=== PATIENT | male | born 2005 | race Hispanic/Latino ===

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

== ENCOUNTER 2023-04-24 10:22 | Emergency (ER) | payer OTHER ==
--- OUTSIDE RECORDS SUMMARY | 2023-04-24 10:44 | XMS REPORT | Continuity of Care Document ---
:2005 Author Organization [facility] t Address [address] [place] [address] Care Team Providers Name Role Phone VIKTORIYA JAMESON Primary Care Physician Unavailable MARIE OVIEDO Attending Clinician Unavailable Marie Crowder Attending Clinician Doctor Unassigned, [place] Attending Clinician Unavailable Payers Payer Name Policy Type Policy Number Effective Date Expiration Date [facility] [id number] 2019 [facility] 00:00:00 Problems This patient has no known problems. Allergies, Adverse Reactions, Alerts Allergy Allergy Status Severity Reaction(s) Onset Inactive Treating Comm ents Source Name Type Date Date Clinician NO KNOWN Drug Active Univers ALLERGIE Class ity of [facility] Social History Social Habit Start Date Stop Date Quantity Comments Source Tobacco use and 2023-04-11 2023-04-11 Smokeless tobacco Un iversity of exposure 00:00:00 00:00:00 non-user [facility] Alcohol intake 2023-04-11 2023-04-11 Current drinker of Un iversity of 00:00:00 00:00:00 alcohol (finding) [facility] Tobacco Comment 2023-04-11 2023-04-11 Vaping Universit y of 00:00:00 00:00:00 [facility] Alcohol Comment 2023-04-11 2023-04-11 occasional Universit y of 00:00:00 00:00:00 [facility] Sex Assigned At [birth year] Universit y of 00:00:00 00:00:00 [facility] Smoking Status Start Date Stop Date Source Tobacco smoking consumption [facility] Never smoked tobacco [facility] Medications Ordered Filled Start Stop Current Ordering Indication Dosage Frequency Signature Comments Components Source Medication Medication Date Date Medication? Clinician (SIG) Name Name alice Yes [id number] 5mL Take 5 mL Univers mine-pseudo 6-15 by mouth 4 it y of ephedrine-D 00:00: [place] ([place] 00 times Medical DM) 2-30-10 daily as Bran ch mg/5 mL needed for syrup Congestion /Allergies . azelastine Yes [id number] 1{spray Use 1 Univers 137 mcg 6-15 } Harmony in ity of (0.1 %) 00:00: each [place] nasal spray [address] [facility] [place] morning and 1 [place] in the evening. Use in each nostril as directed bromphenira Yes [id number] 5mL Take 5 mL Univers mine-pseudo 6-15 by mouth 4 it y of ephedrine-D 00:00: ([place] ([place]OM[place] 00 times Medical DM) 2-30-10 daily as Bran ch mg/5 mL needed for syrup Congestion /Allergies . azelastine Yes [id number] 1{spray Use 1 Univers 137 mcg 6-15 } [place] in ity of (0.1 %) 00:00: each [place] nasal spray [address] [facility] [place] morning and 1 [place] in the evening. Use in each nostril as directed Vital Signs Vital Name Observation Time Observation Value Comments Source Systolic blood 2023-04-11 18:41:00 106 mm[Hg] [facility] Diastolic blood 2023-04-11 18:41:00 72 mm[Hg] [facility] Heart rate 2023-04-11 18:41:00 96 /min [facility] Body temperature 2023-04-11 18:41:00 36.89 [facility] Body height 2023-04-11 18:41:00 189.2 cm [facility] Body weight 2023-04-11 18:41:00 129.593 kg [facility] BMI 2023-04-11 18:41:00 36.19 kg/m2 Universi ty [facility] Oxygen saturation in 2023-04-11 18:41:00 99 /min University Arterial blood by [facility] Pulse oximetry [place] Procedures Procedure Date / Time Performed Performing Clinician Leoncio e POCT MOLECULAR STREP 2023-04-11 18:51:[address] [facility] CONSENT/REFUSAL FOR 2023-04-11 18:38:26 Doctor Unassigned, No [facility] TREATMENT ASSIGNMENT OF BENEFITS 2023-04-11 18:38:14 Doctor Unassigned, No [facility] Encounters Start End Encounter Admission Attending Care Care Encounter Source Date/Time Date/Time Type Type Clinicians Facility Department ID 2023-05-08 2023-05-08 Outpatient R [facility] [id number] Univers 07:30:00 07:30:[address] [facility] 2023-04-11 2023-04-11 Outpatient R [facility] [id number] Univers 13:30:00 14:16:[address] [facility] 2023-04-11 2023-04-11 [facility] [id number] Univers 13:30:00 14:16:43 Visit Marie Wilson [facility] [id number] i ty of [place] [id number] Navneet as KANE?BLEA [id number] [address] MEDICAL OFFICE BUILDING 2023-04-11 2023-04-11 Orders Doctor PERSAUD [id number] Univers 00:00:00 00:00:00 Only Unassigned, CECILIA [id number] ity of [place] [facility] [id number] Navneet as [id number] [address] Results Test Description Test Time Test Comments Results Result Comments Source POCT MOLECULAR STREP 2023-04-11 18:59:28 Test Item Value Reference Range Interpretation Comme nts POCT Molecular Strep (test code = 08648-3) Negative Negative Lab Interpretation (test code = 11326-8) Normal [facility] [id number] 18:59:28 Test Item Value Reference Range Interpretation Comments POCT Molecular Strep (test code = Negative Negative 16081-0) Lab Interpretation (test code = Normal 70609-2) [facility]
[2023-04-24 10:59] LABS: Absolute Lymphocytes (CBC) 1.9 K/uL (0.7-4.9); MCV 88.1 fL (80-100); MPV 7.8 fL (7.6-11.3); RBC Red Blood Cell Count 4.77 M/uL (4.33-5.43)
[2023-04-24 11:17] LABS: Potassium 3.8 mEq/L (3.5-5.1)
--- NOTE | 2023-04-24 11:44 | RAD REPORT ---
EXAM DESCRIPTION: Raman Single View04/24/2023 11:14 am CLINICAL HISTORY: Chest pain COMPARISON: 2017 FINDINGS: The lungs appear clear of acute infiltrate. The heart is normal size IMPRESSION: No acute abnormalities displayed
--- NOTE | 2023-04-24 12:01 | ER ---
Nurse's Notes [facility] Name: Yung Calle Age: 18 yrs Sex: Male : 2005 Arrival Date: 04/24/2023 Time: 10:22 Bed 13 Private MD: Diagnosis: Epistaxis;Chest pain, unspecified Presentation: 04/24 10:31 Ebola Screen: No symptoms or risks identified at this time. Risk Assessment: Do you ld1 want to hurt yourself or someone else? Patient reports no desire to harm self or others. Onset of symptoms was April 24, 2023. 10:31 Method Of Arrival: Ambulatory ld1 10:31 Acuity: ENRIQUE 3 ld1 10:32 Chief complaint: Patient states: Chest pain upon walking since this morning. Hurts when ld1 sneezing. 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 Coronavirus screen: At this time, the client does not indicate any symptoms associated with coronavirus-19. Initial Sepsis Screen: Does the patient meet any 2 criteria? No. Patient's initial sepsis screen is negative. Does the patient have a suspected source of infection? No. Patient's initial sepsis screen is negative. Triage Assessment: 10:32 General: Appears in no apparent distress. comfortable, Behavior is calm, cooperative, ld1 appropriate for age. Pain: Complains of pain in chest Pain does not radiate. Pain currently is 6 out of 10 on a pain scale. at worst was 10 out of 10 on a pain scale. Quality of pain is described as throbbing, Is intermittent. EENT: No signs and/or symptoms were reported regarding the EENT system. Neuro: Level of Consciousness is awake, alert, obeys commands, Oriented to person, place, time, situation. Cardiovascular: Capillary refill < 3 seconds Patient's skin is warm and dry. Rhythm is sinus rhythm. Respiratory: Airway is patent Respiratory effort is even, unlabored. GI: Abdomen is round non-distended. : No signs and/or symptoms were reported regarding the genitourinary system. Derm: No signs and/or symptoms reported regarding the dermatologic system. Musculoskeletal: No signs and/or symptoms reported regarding the musculoskeletal system. Historical: - Allergies: 10:31 No Known Allergies; ld1 - Home Meds: 10:31 Albuterol Inhl [Active]; ld1 - PMHx: 10:31 Asthma; ld1 - PSHx: 10:31 None; ld1 - Immunization history:: Adult Immunizations up to date, Client reports receiving the 2nd dose of the Covid vaccine. - Social history:: Smoking status: Reported history of juuling and/or vaping. Screenin:52 [facility] ED Fall Risk Assessment (Adult) History of falling in the last 3 months, kc6 including since admission No falls in past 3 months (0 pts) Confusion or Disorientation No (0 pts) Intoxicated or Sedated No (0 pts) Impaired Gait No (0 pts) Mobility Assist Device Used No (0 pt) Altered Elimination No (0 pt) Score/Fall Risk Level 0 - 2 = Low Risk Oriented to surroundings, Maintained a safe environment, Educated pt \T\ family on fall prevention, incl call for assistance when getting out of bed, Assessed \T\ reinforced patient's understanding of fall precautions, Hourly rounding (assess needs \T\ fall precautionary measures) done. Abuse screen: Denies threats or abuse. Denies injuries from another. Nutritional screening: No deficits noted. Tuberculosis screening: No symptoms or risk factors identified. Assessment: 10:53 General: Appears in no apparent distress. comfortable, Behavior is calm, cooperative, kc6 appropriate for age. Pain: Complains of pain in chest Pain began 1 day ago. Neuro: Vasquez Agitation-Sedation Scale (RASS): 0 - Alert and Calm Level of Consciousness is awake, alert, obeys commands, Oriented to person, place, time, situation, Appropriate for age. Cardiovascular: Heart tones S1 S2 present Capillary refill < 3 seconds Rhythm is sinus rhythm. Respiratory: Airway is patent Trachea midline Respiratory effort is even, unlabored, Respiratory pattern is regular, symmetrical. GI: No signs and/or symptoms were reported involving the gastrointestinal system. : No signs and/or symptoms were reported regarding the genitourinary system. EENT: Nares are clear pt reports nose bleed prior to arrival. Derm: No signs and/or symptoms reported regarding the dermatologic system. Skin is intact, Skin is pink, warm \T\ dry. Musculoskeletal: No signs and/or symptoms reported regarding the musculoskeletal system. Circulation, motion, and sensation intact. Capillary refill < 3 seconds, Range of motion: intact in all extremities. 11:56 Reassessment: Patient appears in no apparent distress at this time. No changes from kc6 previously documented assessment. Patient and/or family updated on plan of care and expected duration. Pain level reassessed. Patient is alert, oriented x 3, equal unlabored respirations, skin warm/dry/pink. Vital Signs: 10:32 BP 126 / 86; Pulse 85; Resp 18; Temp 98.3(O); Pulse Ox 96% on R/A; Weight 129.27 kg; ld1 Height 6 ft. 2 in. ; Pain 6/10; 11:56 BP 96 / 60; Pulse 62; Resp 17 S; Pulse Ox 99% on R/A; kc6 10:32 Body Mass Index 36.59 (129.27 kg, 187.96 cm) ld1 10:32 Pain Scale: Adult ld1 ED Course: 10:23 Patient arrived in ED. am2 10:24 Shellie Luther [facility]-C [facility] kb 10:24 Bronson Reyes MD is Attending Physician. kb 10:31 Triage completed. ld1 10:32 Arm band placed on right wrist. ld1 10:37 Jerri Arenas, JAKUB is Primary Nurse. kc6 10:52 Patient has correct armband on for positive identification. Bed in low position. Call kc6 light in reach. Side rails up X 1. Client placed on continuous cardiac and pulse oximetry monitoring. NIBP monitoring applied. monitoring coordinator on. 10:52 Inserted saline lock: 20 gauge in right antecubital area, using aseptic technique. kc6 Blood collected. Patient maintains SpO2 saturation greater than 95% on room air. 11:16 XRAY Chest (1 view) In Process Unspecified. EDMS 12:18 No provider procedures requiring assistance completed. IV discontinued, intact, kc6 bleeding controlled, No redness/swelling at site. Pressure dressing applied. Administered Medications: No medications were administered Medication: 12:18 VIS not applicable for this client. kc6 Outcome: 12:01 Discharge ordered by . kb 12:18 Discharged to home ambulatory. kc6 12:18 Condition: improved 12:18 Discharge instructions given to patient, Instructed on discharge instructions, follow up and referral plans. Demonstrated understanding of instructions, follow-up care. 12:18 Patient left the ED. kc6 Signatures: Dispatcher [employer] EDMS Shellie Luther FNP-C FNP-Ckannalisa Maggi Jimenez am2 Nancy Ayoub, RN RN ld1 Jerri Arenas, RN RN kc6
--- NOTE | 2023-04-24 12:01 | EDPHYS ---
Physician Documentation [facility] Name: Yung Calle Age: 18 yrs Sex: Male : 2005 Arrival Date: 04/24/2023 Time: 10:22 Bed 13 Private MD: ED Physician Bronson Reyes HPI: 04/24 11:57 This 18 yrs old Male presents to ER via Ambulatory with complaints of Chest kb Pain, Nose Bleed. 11:59 The patient has not experienced similar symptoms in the past. The patient has not kb recently seen a physician. Pt reports intermittent right chest pain for a while, but this morning it has been constant since he woke up. States the pain is worse with deep breath and sneezing. Also reports nosebleed from right nare that last approx 5 minutes, now resolved. Historical: - Allergies: 10:31 No Known Allergies; ld1 - Home Meds: 10:31 Albuterol Inhl [Active]; ld1 - PMHx: 10:31 Asthma; ld1 - PSHx: 10:31 None; ld1 - Immunization history:: Adult Immunizations up to date, Client reports receiving the 2nd dose of the Covid vaccine. - Social history:: Smoking status: Reported history of juuling and/or vaping. ROS: 11:57 Constitutional: Negative for fever, chills, and weight loss. kb 11:57 ENT: Positive for nose bleed. 11:57 Cardiovascular: Positive for chest pain. 11:57 All other systems are negative. Exam: 11:57 Constitutional: This is a well developed, well nourished patient who is awake, alert, kb and in no acute distress. Head/Face: Normocephalic, atraumatic. ENT: Moist Mucous membranes Cardiovascular: Regular rate and rhythm with a normal S1 and S2. No gallops, murmurs, or rubs. No pulse deficits. Respiratory: Respirations even and unlabored. No increased work of breathing. Talking in full sentences Abdomen/GI: Soft, non-tender. No distention Skin: Warm, dry with normal turgor. Normal color. MS/ Extremity: Pulses equal, no cyanosis. Neurovascular intact. Full, normal range of motion. Neuro: Awake and alert, GCS 15, oriented to person, place, time, and situation. Moves all extremities. Normal gait. 11:57 ECG was reviewed by the Attending Physician. Vital Signs: 10:32 BP 126 / 86; Pulse 85; Resp 18; Temp 98.3(O); Pulse Ox 96% on R/A; Weight 129.27 kg; ld1 Height 6 ft. 2 in. ; Pain 6/10; 11:56 BP 96 / 60; Pulse 62; Resp 17 S; Pulse Ox 99% on R/A; kc6 10:32 Body Mass Index 36.59 (129.27 kg, 187.96 cm) ld1 10:32 Pain Scale: Adult ld1 MDM: 10:24 Patient medically screened. kb 11:59 Differential diagnosis: abnormal EKG, acute myocardial infarction, coronary artery kb disease. Data reviewed: vital signs, nurses notes. Counseling: I had a detailed discussion with the patient and/or guardian regarding: the historical points, exam findings, and any diagnostic results supporting the discharge/admit diagnosis, lab results, radiology results, the need for outpatient follow up, a family practitioner, to return to the emergency department if symptoms worsen or persist or if there are any questions or concerns that arise at home. 04/24 10:32 Order name: Basic Metabolic Panel; Complete Time: 11:23 kb 04/24 10:32 Order name: CBC with Diff; Complete Time: 11:11 kb 04/24 10:32 Order name: Troponin HS; Complete Time: 11:23 kb 04/24 10:32 Order name: XRAY Chest (1 view); Complete Time: 11:45 kb 04/24 10:32 Order name: EKG; Complete Time: 10:33 kb 04/24 10:32 Order name: EKG - Nurse/Tech; Complete Time: 10:52 kb 04/24 10:32 Order name: IV Saline Lock; Complete Time: 10:52 kb 04/24 10:32 Order name: Labs collected and sent; Complete Time: 10:52 kb EC:57 Rate is 82 beats/min. Rhythm is regular. QRS [place] is Normal. VT interval is normal at kb 148 msec. QRS interval is normal at 90 msec. QT interval is normal at 429 msec. Administered Medications: No medications were administered Disposition: 13:43 Co-signature as Attending Physician, Bronson Reyes MD I reviewed the patient's care rt provided by the Advanced Practice Provider and agree with the diagnosis and treatment plan. Disposition Summary: 04/24/23 12:01 Discharge Ordered Location: Home kb Condition: Stable kb Diagnosis - Epistaxis kb - Chest pain, unspecified kb Followup: kb - With: Emergency Department - When: As needed - Reason: Worsening of condition Followup: kb - With: Private Physician - When: 2 - 3 days - Reason: Recheck today's complaints, Continuance of care, Re-evaluation by your physician Discharge Instructions: - Discharge Summary Sheet kb - Nonspecific Chest Pain, Adult, [id number] kb - Nosebleed, Adult, [id number] kb Forms: - Medication Reconciliation Form kb - Thank You Letter kb - Antibiotic Education kb - Prescription Opioid Use kb - [email or web address] kb Signatures: Dispatcher [employer] Shellie Cobb FNP-C FNP-Ckb Sims, Lauren, RN RN ld1 Bronson Reyes MD MD rt
[2023-04-24 12:29] VITALS: TEMP 98.3
[2023-04-24 12:30] VITALS: BP 96/60; O2SAT 99
--- NOTE | 2023-04-25 12:37 | EKG ---
Test Date: 2023-04-24 Test Time: 10:45:22 Rod Tape Operator: BETY MEASUREMENT RESULTS: Intervals: Rate: 82 MD: 148 QRSD: 90 QT: 368 QTc: 429 [place]: P: 47 MD: 148 QRS: 68 T: 36 INTERPRETIVE STATEMENTS: Normal sinus rhythm with sinus arrhythmia Normal ECG Compared to ECG 04/21/2021 06:20:08 No significant changes Electronically Signed On 04-25-23 12:35:03 CDT by David Josue
== END 2023-04-24 12:18 | disposition home or self-care (01) ==
LOC: ER 10:22
DX: R04.0 Epistaxis (principal); R07.9 Chest pain, unspecified
CPT/HCPCS: 36415; 71045; 80048; 84484; 85025; 93005; 99285

== ENCOUNTER 2023-08-28 08:57 | Emergency (ER) | payer OTHER, SELFPAY ==
--- OUTSIDE RECORDS SUMMARY | 2023-08-28 09:01 | XMS REPORT | Continuity of Care Document ---
:2005 Author Organization [facility] t Address [address] [place] [address] Care Team Providers Name Role Phone VIKTORIYA JAMESON Primary Care Physician Unavailable Marie Crowder Attending Clinician Lab, Ang - Db Attending Clinician Unavailable MARIE OVIEDO Attending Clinician Unavailable Doctor Unassigned, [place] Attending Clinician Unavailable Payers Payer Name Policy Type Policy Number Effective Date Expiration Date S ource Problems Condition Condition Condition Status Onset Resolution Last Treating Co mments Source Name Details Category Date Date Treatment Clinician Date Vitamin D Vitamin D Disease Active Uni vers deficiency deficiency 7-15 it y of disease disease 00:00: [address] Elevated Elevated Disease Active Unive rs TSH TSH 7-15 ity of 00:: [address] Allergies, Adverse Reactions, Alerts Allergy Allergy Status Severity Reaction(s) Onset Inactive Treating Comm ents Source Name Type Date Date Clinician NO KNOWN Drug Active Univers ALLERGIE Class ity of [facility] Social History Social Habit Start Date Stop Date Quantity Comments Source Gender identity Universit y of [facility] Sexual orientation Univer sity of [facility] Alcohol intake 2023-05-11 2023-05-11 Current drinker Unive rsity of 00:00:00 00:00:00 of alcohol [facility] [place] Tobacco use and 2023-04-11 2023-04-11 Smokeless tobacco Un iversity of exposure 00:00:00 00:00:00 non-user [facility] Tobacco Comment 2023-04-11 2023-04-11 Vaping Universit y of 00:00:00 00:00:00 [facility] Alcohol Comment 2023-04-11 2023-04-11 occasional Universit y of 00:00:00 00:00:00 [facility] History of Social 2023-04-11 2023-04-11 Univers ity of function 00:00:00 00:00:00 [facility] Sex Assigned At [birth year] Universit y of 00:00:00 00:00:00 [facility] Smoking Status Start Date Stop Date Source Tobacco [facility] Never [facility] tobacco [facility] Medications Ordered Filled Start Stop Current Ordering Indication Dosage Frequency Signature Comments Components Source Medication Medication Date Date Medication? Clinician (SIG) Name Name ergocalcife Yes [id number] Take 1 Univers rol, 7-15 capsule by ity of vitamin d2, 00:00: mouth [place] (VITAMIN 00 weekly. Medical D2) 1,250 Branch mcg (50,000 unit) capsule bromphenira Yes [id number] 5mL Take 5 mL Univers mine-pseudo 6-15 by mouth 4 it y of ephedrine-D 00:00: ([place] (BROMFED 00 times Medical DM) 2-30-10 daily as Bran ch mg/5 mL needed for syrup Congestion /Allergies . azelastine Yes [id number] 1{spray Use 1 Univers 137 mcg 6-15 } [place] in ity of (0.1 %) 00:00: each [place] nasal spray 00 nostril in Me dical the Branch morning and 1 [place] in the evening. Use in each nostril as directed bromphenira Yes [id number] 5mL Take 5 mL Univers mine-pseudo 6-15 by mouth 4 it y of ephedrine-D 00:00: ([place] (BROMFED 00 times Medical DM) 2-30-10 daily as Bran ch mg/5 mL needed for syrup Congestion /Allergies . azelastine Yes [id number] 1{spray Use 1 Univers 137 mcg 6-15 } [place] in ity of (0.1 %) 00:00: each [place] nasal spray 00 nostril in [place] dical the Branch morning and 1 [place] in the evening. Use in each nostril as directed bromphenira 0 Yes [id number] 5mL Take 5 mL Univers mine-pseudo 6-15 by mouth 4 it y of ephedrine-D 00:00: (four[place] (BROMFED 00 times Medical DM) 2-30-10 daily as Bran ch mg/5 mL needed for syrup Congestion /Allergies . azelastine 2023-0 Yes [id number] 1{spray Use 1 Univers 137 mcg 6-15 } [place] in ity of (0.1 %) 00:00: each [place] nasal spray 00 nostril in Me dical the Branch morning and 1 [place] in the evening. Use in each nostril as directed bromphenira 2023-0 Yes [id number] 5mL Take 5 mL Univers mine-pseudo 6-15 by mouth 4 it y of ephedrine-D 00:00: (four[place] (BROMFED 00 times Medical DM) 2-30-10 daily as Bran ch mg/5 mL needed for syrup Congestion /Allergies . azelastine 3-0 Yes [id number] 1{spray Use 1 Univers 137 mcg 6-15 } [place] in ity of (0.1 %) 00:00: each [place] nasal spray 00 nostril in Va dical the Branch morning and 1 [place] in the evening. Use in each nostril as directed bromphenira 3-0 Yes [id number] 5mL Take 5 mL Univers mine-pseudo 6-15 by mouth 4 it y of ephedrine-D 00:00: (four[place] (BROMFED 00 times Medical DM) 2-30-10 daily as Bran ch mg/5 mL needed for syrup Congestion /Allergies . azelastine 3-0 Yes [id number] 1{spray Use 1 Univers 137 mcg 6-15 } [place] in ity of (0.1 %) 00:00: each [place] nasal spray 00 nostril in Va dical the Branch morning and 1 [place] in the evening. Use in each nostril as directed bromphenira 3-0 Yes [id number] 5mL Take 5 mL Univers mine-pseudo 6-15 by mouth 4 it y of ephedrine-D 00:00: (four[place] (BROMFED 00 times Medical DM) 2-30-10 daily as Bran ch mg/5 mL needed for syrup Congestion /Allergies . azelastine 202-0 Yes [id number] 1{spray Use 1 Univers 137 mcg 6-15 } [place] in ity of (0.1 %) 00:00: each [place] nasal spray 00 nostril in Va dical the Branch morning and 1 [place] in the evening. Use in each nostril as directed Vital Signs Vital Name Observation Time Observation Value Comments Source Systolic blood 2023-05-08 12:36:00 132 mm[Hg] Univer sity of [facility] Diastolic blood 2023-05-08 12:36:00 79 mm[Hg] [facility] Heart rate 2023-05-08 12:36:00 72 /min Universi ty [facility] Body temperature 2023-05-08 12:36:00 36.67 [facility] Body height 2023-05-08 12:36:00 179.1 cm Universi ty [facility] Body weight 2023-05-08 12:36:00 131.906 kg Universi ty [facility] BMI 2023-05-08 12:36:00 41.14 kg/m2 Universi ty [facility] Oxygen saturation in 2023-05-08 12:36:00 100 /min University of Arterial blood by [facility] Pulse oximetry Branch Systolic blood 2023-04-11 18:41:00 106 mm[facility]Hg[facility] 2023-04-11 18:41:00 72 mm[Hg] [facility] Heart rate 2023-04-11 18:41:00 96 /min Universi ty [facility] Body temperature 2023-04-11 18:41:00 36.89 [facility] Body height 2023-04-11 18:41:00 189.2 cm Universi ty [facility] Body weight 2023-04-11 18:41:00 129.593 kg Universi ty [facility] BMI 2023-04-11 18:41:00 36.19 kg/m2 Universi ty [facility] Oxygen saturation in 2023-04-11 18:41:00 99 /min University of Arterial blood by [facility] Pulse oximetry Branch Procedures Procedure Date / Time Performed Performing Clinician Sourc e POCT MOLECULAR STREP 2023-04-11 18:51:00 Marie Oviedo Matter sitroberth [facility] CONSENT/REFUSAL FOR 2023-04-11 18:38:26 Doctor Unassigned, No [facility] DIAGNOSIS AND [facility] TREATMENT ASSIGNMENT OF BENEFITS 2023-04-11 18:38:14 Doctor Unassigned, No [facility] Encounters Start End Encounter Admission Attending Care Care Encounter Source Date/Time Date/Time Type Type Clinicians Facility Department ID 2023-05-11 2023-05-11 [facility] [id number]..[id number] Univers 00:00:00 00:00:00 Marie Wilson HEALTH [id number] i ty of [place] [id number] Navneet as KANE?BLEA [id number] [address] MEDICAL OFFICE [facility] 2023-05-08 2023-05-08 Environmental Health Manager Lab, Ang - Db [facility] 1..840.1 [id number] Univers 08:00:00 08:15:00 Visit Marie Oviedo HEALTH [id number] [facility] [id number] Navneet as KANE?BLEA [id number] [facility] [address] MEDICAL OFFICE [facility] [address] 2023-05-08 2023-05-08 [facility] [id number] Univers 07:30:00 07:55:08 MARIE mathews [facility] 2023-05-08 2023-05-08 [facility] [id number] Univers 07:30:00 07:55:08 Visit Marie A HEALTH [id number] i ty of [place] [id number] Navneet as KANE?BLEA [id number] [address] MEDICAL OFFICE [facility] 2023-04-11 2023-04-11 [facility] [id number] Univers 13:30:00 14:16:43 MARIE mathews [facility] 2023-04-11 2023-04-11 [facility] [id number]..[id number] [facility] 13:30:00 14:16:43 Visit Marie Wilson [place] [id number] i ty of [place] [id number] Navneet as KANE?BLEA [id number] Va michellemanpreet MOREJON [address] [place] [address] MEDICAL OFFICE BUILDING 2023-04-11 2023-04-11 Orders Doctor HUNG [id number] Univers 00:00:00 00:00:00 Only Unassigned, CECILIA [id number] ity of [place] [facility] [id number] Navneet as [id number] [address] Results Test Description Test Time Test Comments Results Result Comments Source POCT MOLECULAR STREP 2023-04-11 18:59:28 Test Item Value Reference Range Interpretation Comme nts POCT Molecular Strep (test code = 17161-2) Negative Negative Lab Interpretation (test code = 86229-7) [facility] [id number] 18:59:28 Test Item Value Reference Range Interpretation Comments POCT Molecular Strep (test code = Negative Negative 11096-6) Lab Interpretation (test code = Normal 01751-8) [facility]
[2023-08-28] MEDS ORDERED: IPRATROPIUM BROM 0.5MG/2.5ML ONE (09:43)
[2023-08-28] MEDS ORDERED: KETOROLAC 30 MG/ML INJ ONE ×2 (09:43→10:01)
[2023-08-28] MEDS ORDERED: ALBUTEROL 2.5 MG/3 ML NEB SOL ONE (09:43)
[2023-08-28] MEDS ORDERED: predniSONE 20 MG TAB ONE (09:44)
--- NOTE | 2023-08-28 10:04 | RAD REPORT ---
EXAM DESCRIPTION: RAD - Chest Single View - 08/28/2023 9:43 am CLINICAL HISTORY: COUGH Chest pain. COMPARISON: Chest Single View dated 04/24/2023; Chest Pa And Lat (2 Views) dated 02/22/2018; Chest Sin gle View dated 03/26/2017 FINDINGS: Portable technique limits examination quality. Mild infiltrate is seen in both lung bases, greater on the right suspicious for pneumonia. The lungs are otherwise clear. The heart is normal in size. No displaced fractures. IMPRESSION: Mild bibasilar lung infiltrate pattern noted. This is likely related to pneumonia.
--- NOTE | 2023-08-28 10:24 | EDPHYS ---
Physician Documentation [facility] Name: Yung Calle Age: 18 yrs Sex: Male : 2005 Arrival Date: 08/28/2023 Time: 08:57 Bed 20 Private MD: ED Physician Bronson Reyes HPI: 08/28 09:17 This 18 yrs old Male presents to ER via Ambulatory with complaints of rt Breathing Difficulty. 09:17 Patient presents to the ED with cough, mild shortness of breath for the past few days. rt He has had a positive contact with the patient with flu. Reports body aches. Denies other acute complaints at this time, symptoms are mild in severity, no other aggravating or alleviating factors.. Historical: - Allergies: 09:05 No Known Allergies; ll1 - Home Meds: 09:02 Albuterol Inhl [Active]; mb9 - PMHx: 09:02 Asthma; mb9 - PSHx: 09:05 None; ll1 - Immunization history:: Adult Immunizations up to date. - Social history:: Smoking status: Patient/guardian denies using tobacco, Stopped _ months ago .1. - Family history:: not pertinent. ROS: 09:17 Cardiovascular: Negative for chest pain, palpitations, and edema, Abdomen/GI: Negative rt for abdominal pain, nausea, vomiting, diarrhea, and constipation, MS/Extremity: Negative for injury and deformity, Skin: Negative for injury, rash, and discoloration, Neuro: Negative for headache, weakness, numbness, tingling, and seizure, Psych: Negative for depression, anxiety, suicide ideation, homicidal ideation, and hallucinations, 09:17 Constitutional: Positive for body aches, fever, 09:17 Respiratory: Positive for dyspnea on exertion, shortness of breath, Exam: 09:17 Constitutional: This is a well developed, well nourished patient who is awake, alert, rt and in no acute distress. Head/Face: Normocephalic, atraumatic. Chest/axilla: Normal chest wall appearance and motion. Nontender with no deformity. No lesions are appreciated. Cardiovascular: Regular rate and rhythm with a normal S1 and S2. No gallops, murmurs, or rubs. Normal PMI, no JVD. No pulse deficits. Respiratory: Lungs have equal breath sounds bilaterally, clear to auscultation and percussion. No rales, rhonchi or wheezes noted. No increased work of breathing, no retractions or nasal flaring. Abdomen/GI: Soft, non-tender, with normal bowel sounds. No distension or tympany. No guarding or rebound. No evidence of tenderness throughout. Skin: Warm, dry with normal turgor. Normal color with no rashes, no lesions, and no evidence of cellulitis. MS/ Extremity: Pulses equal, no cyanosis. Neurovascular intact. Full, normal range of motion. Neuro: Awake and alert, GCS 15, oriented to person, place, time, and situation. Cranial nerves II-XII grossly intact. Motor strength 5/5 in all extremities. Sensory grossly intact. Cerebellar exam normal. Normal gait. Psych: Awake, alert, with orientation to person, place and time. Behavior, mood, and affect are within normal limits. Vital Signs: 09:06 BP 139 / 83; Pulse 100; Resp 18; Temp 97.8; Pulse Ox 95% on R/A; Weight 131.54 kg; ll1 Height 6 ft. 3 in. ; Pain 7/10; 10:00 BP 136 / 82; Pulse 101; Resp 18; Pulse Ox 97% on R/A; eh3 09:06 Body Mass Index 36.25 (131.54 kg, 190.5 cm) ll1 09:06 Pain Scale: Adult ll1 MDM: 09:07 Patient medically screened. rt 10:25 Differential diagnosis: asthma, Bronchitis Chronic Obstructive Pulmonary Disease rt pneumonia, Pneumothorax. Data reviewed: vital signs, nurses notes, lab test result(s), radiologic studies. I considered the following discharge prescriptions or medication management in the emergency department Medications were administered in the Emergency Department. See MAR. Independent interpretation of the following test(s) in the Emergency Department X-Ray: My interpretation is Faint consolidation seen in the bibasilar region. Test considered but Not performed: Labs: Stable vital signs, well-appearing, labs not indicated. Counseling: I had a detailed discussion with the patient and/or guardian regarding the historical points, exam findings, and any diagnostic results supporting the discharge/admit diagnosis, lab results, radiology results, the need for outpatient follow up. Response to treatment: the patient's symptoms have markedly improved after treatment. 08/28 09:14 Order name: Influenza Screen (a \T\ B); Complete Time: 10:14 rt 08/28 09:14 Order name: Chest Single View XRAY; Complete Time: 10:05 rt Administered Medications: 09:35 Drug: DuoNeb Nebulize (3:1) (2.5 mg - 0.5 mg) 3 ml Nebulizer once Route: Nebulizer; 3 10:35 Follow up: Response: No adverse reaction 3 09:35 Drug: predniSONE PO 40 mg PO once Route: PO; 3 10:35 Follow up: Response: No adverse reaction 3 09:48 Drug: Ketorolac IM 30 mg IM once Route: IM; Site: right deltoid; 3 10:35 Follow up: Response: No adverse reaction eh3 Disposition Summary: 08/28/23 10:23 Discharge Ordered Notes: Location: Home rt Problem: new rt Symptoms: have improved rt Condition: Stable rt Diagnosis - Pneumonia, unspecified organism rt - Acute bronchospasm rt Followup: rt - With: Private Physician - When: 2 - 3 days - Reason: Discharge Instructions: - Discharge Summary Sheet rt - Community-Acquired Pneumonia, Adult rt - Bronchospasm, Adult, [id number] rt Forms: - Medication Reconciliation Form rt - Thank You Letter rt - Antibiotic Education rt - Prescription Opioid Use rt - Patient Portal Instructions rt - Leadership Thank You Letter rt Prescriptions: - albuterol sulfate 90 mcg/actuation Inhalation HFA Aerosol Inhaler - inhale 3 puff INHALATION route every 3 hours; 2 Each; Refills: 0, Product rt Selection Permitted - Doxycycline Hyclate 100 mg Oral Tablet - take 1 tablet ORAL route every 12 hours; 20 tablet; Refills: 0, Product rt Selection Permitted - Prednisone 20 mg Oral tablet - take 2 tablets ORAL route once daily for 4 days; 8 tablet; Refills: 0, Product rt Selection Permitted Signatures: Dispatcher [employer] Gabbie Koehler RN RN ll1 Neha Butler RN RN eh3 Pily Lewis RN RN mb9 Bronson Reyes MD MD rt
--- NOTE | 2023-08-28 10:24 | ER ---
Nurse's Notes [facility] Name: Yung Calle Age: 18 yrs Sex: Male : 2005 Arrival Date: 08/28/2023 Time: 08:57 Bed 20 Private MD: Diagnosis: Pneumonia, unspecified organism;Acute bronchospasm Presentation: 08/28 09:06 Chief complaint: Patient states: Cough, congestion, SOB at times, back achy for 4 days. ll1 No known fever. Coronavirus screen: Vaccine status: Patient reports being unvaccinated. Client denies travel out of the [place] in the last 14 days. congestion, cough unrelated to allergies, fatigue, muscle pain, Client presents with at least one sign or symptom that may indicate coronavirus-19. Standard/surgical mask placed on the client. Ebola Screen: Patient denies travel to an Ebola-affected area in the 21 days before illness onset. Initial Sepsis Screen: Does the patient meet any 2 criteria? HR > 90 bpm. No. Patient's initial sepsis screen is negative. Does the patient have a suspected source of infection? Yes: Productive cough/pneumonia. Risk Assessment: Do you want to hurt yourself or someone else? Patient reports no desire to harm self or others. Onset of symptoms was August 25, 2023. 09:06 Method Of Arrival: Ambulatory ll1 09:06 Acuity: ENRIQUE 3 ll1 Triage Assessment: 09:09 General: Appears uncomfortable, Behavior is calm, cooperative, appropriate for age. ll1 Pain: Complains of pain in back Pain currently is 7 out of 10 on a pain scale. Quality of pain is described as aching. EENT: Reports nasal congestion. Respiratory: Reports shortness of breath cough that is labored breathing pain with cough. Respiratory: Onset: The symptoms/episode began/occurred 4 days, the patient has mild shortness of breath. Historical: - Allergies: 09:05 No Known Allergies; ll1 - Home Meds: 09:02 Albuterol Inhl [Active]; mb9 - PMHx: 09:02 Asthma; mb9 - PSHx: 09:05 None; ll1 - Immunization history:: Adult Immunizations up to date. - Social history:: Smoking status: Patient/guardian denies using tobacco, Stopped _ months ago .1. - Family history:: not pertinent. Screenin:03 [facility] ED Fall Risk Assessment (Adult) History of falling in the last 3 months, mb9 including since admission No falls in past 3 months (0 pts) Confusion or Disorientation No (0 pts) Intoxicated or Sedated No (0 pts) Impaired Gait No (0 pts) Mobility Assist Device Used No (0 pt) Altered Elimination No (0 pt) Score/Fall Risk Level 0 - 2 = Low Risk Oriented to surroundings, Maintained a safe environment, Educated pt \T\ family on fall prevention, incl call for assistance when getting out of bed. Abuse screen: Denies threats or abuse. Nutritional screening: No deficits noted. Tuberculosis screening: No symptoms or risk factors identified. Assessment: 09:05 General: Appears in no apparent distress. uncomfortable, Behavior is calm, cooperative, eh3 appropriate for age. Pain: Denies pain. Neuro: Level of Consciousness is awake, alert, obeys commands, Oriented to person, place, time, situation. Cardiovascular: Capillary refill < 3 seconds Patient's skin is warm and dry. Rhythm is sinus tachycardia. Respiratory: Airway is patent Respiratory effort is even, unlabored, Respiratory pattern is regular, symmetrical, Breath sounds with wheezes bilaterally. GI: No signs and/or symptoms were reported involving the gastrointestinal system. : No signs and/or symptoms were reported regarding the genitourinary system. EENT: No signs and/or symptoms were reported regarding the EENT system. Derm: Skin is pink, warm \T\ dry. Musculoskeletal: Circulation, motion, and sensation intact. Range of motion: intact in all extremities. Vital Signs: 09:06 BP 139 / 83; Pulse 100; Resp 18; Temp 97.8; Pulse Ox 95% on R/A; Weight 131.54 kg; ll1 Height 6 ft. 3 in. ; Pain 7/10; 10:00 BP 136 / 82; Pulse 101; Resp 18; Pulse Ox 97% on R/A; eh3 09:06 Body Mass Index 36.25 (131.54 kg, 190.5 cm) ll1 09:06 Pain Scale: Adult ll1 ED Course: 09:00 Patient arrived in ED. mg5 09:00 Bronson Reyes MD is Attending Physician. rt 09:02 Pily Lewis RN is Primary Nurse. mb9 09:02 Arm band placed on. mb9 09:03 Placed in gown. Bed in low position. Call light in reach. Side rails up X 1. Client mb9 placed on continuous cardiac and pulse oximetry monitoring. NIBP monitoring applied. educational sign language interpreter on. 09:05 Provided Education on: Use of call longoria. eh3 09:07 Neha Butler, RN is Primary Nurse. eh3 09:09 Triage completed. ll1 09:45 Chest Single View XRAY In Process Unspecified. EDMS 10:37 No provider procedures requiring assistance completed. Patient did not have IV access eh3 during this emergency room visit. Administered Medications: 09:35 Drug: DuoNeb Nebulize (3:1) (2.5 mg - 0.5 mg) 3 ml Nebulizer once Route: Nebulizer; 3 10:35 Follow up: Response: No adverse reaction 3 09:35 Drug: predniSONE PO 40 mg PO once Route: PO; eh3 10:35 Follow up: Response: No adverse reaction 3 09:48 Drug: Ketorolac IM 30 mg IM once Route: IM; Site: right deltoid; 3 10:35 Follow up: Response: No adverse reaction 3 Medication: 09:03 VIS not applicable for this client. mb9 Outcome: 10:23 Discharge ordered by . rt 10:37 Discharged to home ambulatory, 3 10:37 Condition: stable 10:37 Discharge instructions given to patient, Instructed on discharge instructions, follow up and referral plans. medication usage, Demonstrated understanding of instructions, follow-up care, medications, Prescriptions given X 3, 10:37 Patient left the ED. 3 Signatures: Dispatcher [employer] EDMS Gabbie Alan, RN RN ll1 Neha Butler, RN RN 3 Pily Lewis RN RN Bronson Venegas MD MD rt Leia Quintana mg5
[2023-08-28 10:42] VITALS: TEMP 97.8
[2023-08-28 10:44] VITALS: BP 136/82; O2SAT 97
== END 2023-08-28 10:37 | disposition home or self-care (01) ==
LOC: ER 08:57
DX: J18.9 Pneumonia, unspecified organism (principal); J98.01 Acute bronchospasm
CPT/HCPCS: 71045; 87804; 94640; 96372; 99285; J7512; J7613; J7644

== ENCOUNTER → 2023-11-06 | Emergency (ER) | payer SELFPAY ==
[~2023-11-06] MED LIST: KETOROLAC 30 MG/ML INJ ONE; NA CHLORIDE 0.9% 1,000 ML ONE; ONDANSETRON 4 MG/2 ML VIAL ONE
--- OUTSIDE RECORDS SUMMARY | 2023-11-06 20:59 | XMS REPORT | Continuity of Care Document ---
Author Name Unknown Address [address] [facility] [place] [address] [facility] thconnect Address [address] [facility] [address] [place] [address] Care Team Providers Care Edge Worker Name Role Phone VIKTORIYA JAMESON Primary Care Physician Unav ailable Marie Crowder Attending Clinician [phone] Lab, Ang - Db Attending Clinician Unavailable MARIE OVIEDO Attending Clinician Unavailable Doctor Unassigned, [place] Attending Clinician U navailable Payers Payer Name Policy Type Policy Number Effective Date Expirati on Date Source Problems Condition Name Condition Details Condition Category Status Onset Date Resolution Date Last Treatment Date Treating Clinician Comments Source Vitamin D deficiency disease Vitamin D deficiency disease Disease Active 05-11 00:00: 00 [facility] Elevated TSH Elevated TSH Disease Active 05-11 00:00: 00 [facility] Allergies, Adverse Reactions, Alerts Allergy Name Allergy Type Status Severity Reaction(s) Onset Date Inactive Date Treating Clinician Comments Source NO KNOWN ALLERGIE S Drug Class Active [facility] Social History Social Habit Start Date Stop Date Quantity Comments Source Gender identity Univ [facility] Sexual orientation [facility] Alcohol intake 2023-05-11 00:00:00 2023-05-11 00:00:00 Current drinker of alcohol (finding) [facility] Tobacco use and exposure 2023-04-11 00:00:00 2023-04-11 00:00:00 Smokeless tobacco non-user [facility] Tobacco Comment 2023-04-11 00:00:00 2023-04-11 00:00:00 Vaping [facility] Alcohol Comment 2023-04-11 00:00:00 2023-04-11 00:00:00 occasional [facility] History of Social function 2023-04-11 00:00:00 2023-04-11 00:00:00 [facility] Sex Assigned At 2005 00:00:00 2005 00:00:00 [facility] Smoking Status Start Date Stop Date Source Tobacco smoking consumption unknown [facility] Never smoked tobacco [facility] Medications Ordered Medication Name Filled Medication Name Start Date Stop Date Current Medication? Ordering Clinician Indication Dosage Frequency Signature (SIG) Comments Components Source ergocalcife rol, vitamin d2, (VITAMIN D2) 1,250 mcg (50,000 unit) capsule 05-11 00:00: 00 Yes [id number] Take 1 capsule by mouth weekly. [facility] bromphenira mine-pseudo ephedrine-D M (BROMFED DM) 2-30-10 mg/5 mL syrup 04-11 00:00: 00 Yes [id number] 5mL Take 5 mL by mouth 4 (four) times daily as needed for Congestion /Allergies . [facility] azelastine 137 mcg (0.1 %) nasal spray 04-11 00:00: 00 Yes [id number] 1{spray } Use 1 [place] in each nostril in the morning and 1 [place] in the evening. Use in each nostril as directed [facility] bromphenira mine-pseudo ephedrine-D M (BROMFED DM) 2-30-10 mg/5 mL syrup 04-11 00:00: 00 Yes [id number] 5mL Take 5 mL by mouth 4 (four) times daily as needed for Congestion /Allergies . [facility] azelastine 137 mcg (0.1 %) nasal spray 04-11 00:00: 00 Yes [id number] 1{spray } Use 1 [place] in each nostril in the morning and 1 [place] in the evening. Use in each nostril as directed [facility] bromphenira mine-pseudo ephedrine-D M (BROMFED DM) 2-30-10 mg/5 mL syrup 2022-0 15 00:00: 00 Yes [id number] 5mL Take 5 mL by mouth 4 (four) times daily as needed for Congestion /Allergies . [facility] azelastine 137 mcg (0.1 %) nasal spray 0 15 00:00: 00 Yes [id number] 1{spray } Use 1 [place] in each nostril in the morning and 1 [place] in the evening. Use in each nostril as directed [facility] bromphenira mine-pseudo ephedrine-D M (BROMFED DM) 2-30-10 mg/5 mL syrup 0 15 00:00: 00 Yes [id number] 5mL Take 5 mL by mouth 4 (four) times daily as needed for Congestion /Allergies . [facility] azelastine 137 mcg (0.1 %) nasal spray 04-11 00:00: 00 Yes [id number] 1{spray } Use 1 [place] in each nostril in the morning and 1 [place] in the evening. Use in each nostril as directed [facility] bromphenira mine-pseudo ephedrine-D M (BROMFED DM) 2-30-10 mg/5 mL syrup 0 15 00:00: 00 Yes [id number] 5mL Take 5 mL by mouth 4 (four) times daily as needed for Congestion /Allergies . [facility] azelastine 137 mcg (0.1 %) nasal spray 15 00:00: 00 Yes [id number] 1{spray } Use 1 [place] in each nostril in the morning and 1 [place] in the evening. Use in each nostril as directed [facility] bromphenira mine-pseudo ephedrine-D M (BROMFED DM) 2-30-10 mg/5 mL syrup 0 15 00:00: 00 Yes [id number] 5mL Take 5 mL by mouth 4 (four) times daily as needed for Congestion /Allergies . [facility] azelastine 137 mcg (0.1 %) nasal spray 0 6-15 00:00: 00 Yes [id number] 1{spray } Use 1 [place] in each nostril in the morning and 1 [place] in the evening. Use in each nostril as directed [facility] Vital Signs Vital Name Observation Time Observation Value Comments [place] [facility] Systolic blood pressure 2023-05-08 12:36:00 132 mm[Hg] [facility] Diastolic blood pressure 2023-05-08 12:36:00 79 mm[Hg] [facility] Heart rate 2023-05-08 12:36:00 72 /min [facility] Body temperature 2023-05-08 12:36:00 36.67 Nereyda [facility] Body height 2023-05-08 12:36:00 179.1 cm [facility] Body weight 2023-05-08 12:36:00 131.906 kg [facility] BMI 2023-05-08 12:36:00 41.14 kg/m2 [facility] Oxygen saturation in Arterial blood by Pulse oximetry 2023-05-08 12:36:00 100 /min [facility] Systolic blood pressure 2023-04-11 18:41:00 106 mm[Hg] [facility] Diastolic blood pressure 2023-04-11 18:41:00 72 mm[Hg] [facility] Heart rate 2023-04-11 18:41:00 96 /min [facility] Body temperature 2023-04-11 18:41:00 36.89 Nereyda [facility] Body height 2023-04-11 18:41:00 189.2 cm [facility] Body weight 2023-04-11 18:41:00 129.593 kg [facility] BMI 2023-04-11 18:41:00 36.19 kg/m2 [facility] Oxygen saturation in Arterial blood by Pulse oximetry 2023-04-11 18:41:00 99 /min [facility] Procedures Procedure Date / Time Performed Performing Clinicia n Source POCT MOLECULAR STREP 2023-04-11 18:51:00 Gely Oviedo [facility] CONSENT/REFUSAL FOR DIAGNOSIS AND TREATMENT 2023-04-11 18:38:26 Doctor Unassigned, [place] [facility] ASSIGNMENT OF BENEFITS 2023-04-11 18:38:14 Docto r Unassigned, [place] [facility] Encounters Start Date/Time End Date/Time Encounter Type Admission Type Attending [facility] Facility Care Department Encounter ID Source 2023-05-11 00:00:00 2023-05-11 00:00:00 [facility]phone [facility] [id number] [facility] 2023-05-08 08:00:00 2023-05-08 08:15:00 Senior Center Manager Visit Lab, Severo JulianMarie ramesh [facility] [place] [id number] [id number] [facility] 2023-05-08 07:30:00 2023-05-08 07:55:08 Outpatient R WILBER MARIE [facility] [id number] [facility] 2023-05-08 07:30:00 2023-05-08 07:55:08 Office Visit WilberMarie ramesh [facility] [place]?[facility] 1..840.114 [id number] [id number] [id number] [facility] 2023-04-11 13:30:00 2023-04-11 14:16:43 Outpatient R MARIE OVIEDO [facility] [id number] [facility] 2023-04-11 13:30:00 2023-04-11 14:16:43 Office Visit WilberMarie ramesh [facility] [place]?[facility] 1..840.114 [id number] [id number] [facility] 2023-04-11 00:00:00 2023-04-11 00:00:00 Orders Only Doctor Unassigned, [place] [facility] [id number] [id number] [facility] Results Test Description Test Time Test Comments Results Result Co mments Source [id number] 18:59:28* Test Item Value Reference Range Interpretation Comme nts POCT Molecular Strep (test c ode = 05915-2) Negative Negative Lab Interpretation (test cod e = [id number]) Normal [facility]
[2023-11-06 21:48] LABS: Absolute Lymphocytes (CBC) 2.9 K/uL (0.7-4.9); Hematocrit 40.6 % (39.6-49.0); Lymphocytes % 27.9 % (15.3-44.8); MCV 86.2 fL (80-100); MPV 7.4 fL (7.6-11.3); Platelets 226 thou/uL (152-406); RBC Red Blood Cell Count 4.71 M/uL (4.33-5.43)
[2023-11-06 22:05] LABS: Albumin 3.6 g/dL (3.4-5.0); Bilirubin Total 0.3 mg/dL (0.2-1.0); Potassium 4.1 mEq/L (3.5-5.1); Protein, Total 7.8 g/dL (6.4-8.2)
[2023-11-06 22:57] LABS: Urine Bacteria None Seen /HPF (<20); Urine Bilirubin NEGATIVE (Negative); Urine Blood Negative (Negative); Urine Clarity Clear (Clear); Urine Color Light-Yellow (Yellow); Urine Crystals Unidentified Few /HPF (None Seen); Urine Glucose NEGATIVE (Negative); Urine Protein TRACE (Negative); Urine RBC <5 /HPF (None Seen); Urine Urobilinogen 1+ (Normal)
--- NOTE | 2023-11-06 23:37 | EDPHYS ---
Physician Documentation [facility] Name: Yung Calle Age: 18 yrs Sex: Male : 2005 Arrival Date: 11/06/2023 Time: 20:56 Bed 8 Private MD: ED Physician Gisel Chaves HPI: 11/06 23:38 This 18 yrs old Male presents to ER via Ambulatory with complaints of gb1 Abdominal Pain. Historical: - Allergies: 21:18 No Known Allergies; as6 - PMHx: 21:18 Asthma; as6 - PSHx: 21:18 None; as6 - Immunization history:: Adult Immunizations up to date. - Social history:: Smoking status: Reported history of juuling and/or vaping. ROS: 23:38 Abdomen/GI: Positive for rectal pain, rectal bleeding, gb1 Exam: 23:38 Constitutional: This is a well developed, well nourished patient who is awake, alert, gb1 and in no acute distress. Head/Face: Normocephalic, atraumatic. Eyes: Pupils equal round and reactive to light, extra-ocular motions intact. Lids and lashes normal. Conjunctiva and sclera are non-icteric and not injected. Cornea within normal limits. Periorbital areas with no swelling, redness, or edema. ENT: Nares patent. No nasal discharge, no septal abnormalities noted. Tympanic membranes are normal and external auditory canals are clear. Oropharynx with no redness, swelling, or masses, exudates, or evidence of obstruction, uvula midline. Mucous membranes moist. Neck: Trachea midline, no thyromegaly or masses palpated, and no cervical lymphadenopathy. Supple, full range of motion without nuchal rigidity, or vertebral point tenderness. No Meningismus. Chest/axilla: Normal chest wall appearance and motion. Nontender with no deformity. No lesions are appreciated. Cardiovascular: Regular rate and rhythm with a normal S1 and S2. No gallops, murmurs, or rubs. Normal PMI, no JVD. No pulse deficits. Respiratory: Lungs have equal breath sounds bilaterally, clear to auscultation and percussion. No rales, rhonchi or wheezes noted. No increased work of breathing, no retractions or nasal flaring. Male : anal fissure at 12:00 Skin: Warm, dry with normal turgor. Normal color with no rashes, no lesions, and no evidence of cellulitis. MS/ Extremity: Pulses equal, no cyanosis. Neurovascular intact. Full, normal range of motion. Neuro: Awake and alert, GCS 15, oriented to person, place, time, and situation. Cranial nerves II-XII grossly intact. Motor strength 5/5 in all extremities. Sensory grossly intact. Cerebellar exam normal. Normal gait. Psych: Awake, alert, with orientation to person, place and time. Behavior, mood, and affect are within normal limits. Vital Signs: 21:16 BP 129 / 78; Pulse 81; Resp 18 S; Temp 98.4(TE); Pulse Ox 100% on R/A; Weight 122.47 kg as6 (R); Height 6 ft. 4 in. (R); Pain 2/10; 22:30 BP 111 / 69; Pulse 70; Resp 16; Pulse Ox 100% on R/A; jb4 23:28 BP 101 / 62; Pulse 68; Resp 16 S; Pulse Ox 100% on R/A; jw7 21:16 Body Mass Index 32.87 (122.47 kg, 193.04 cm) as6 21:16 Pain Scale: Adult as6 MDM: 21:28 Patient medically screened. 1 23:38 Differential diagnosis: hemorrhoids, fissure, pilonidal cyst. Data reviewed: vital 1 signs, nurses notes. 23:41 Data reviewed: lab test result(s), CBC, electrolytes. 11/06 21:29 Order name: CBC with Diff; Complete Time: 22:48 11/06 21:29 Order name: CMP; Complete Time: 22:48 11/06 21:29 Order name: Lipase; Complete Time: 22:48 11/06 21:29 Order name: Urinalysis w/ reflexes; Complete Time: 22:58 11/06 21:29 Order name: IV Saline Lock; Complete Time: 21:42 11/06 21:29 Order name: Labs collected and sent; Complete Time: 21:42 gb Administered Medications: 22:23 Drug: NS 0.9% IV 1000 ml IV at 1 bolus Per protocol; 1000 mL bolus Route: IV; Rate: 1 jw7 bolus; Site: left antecubital; 22:23 Drug: TORadol - Ketorolac IVP 15 mg IVP once Route: IVP; Site: left antecubital; jw7 22:23 Drug: Ondansetron IVP 4 mg IVP once; over 2 minutes Route: IVP; Site: left antecubital; jw7 Disposition: 23:40 Chart complete. gb1 Disposition Summary: 11/06/23 23:37 Discharge Ordered Notes: Location: Home gb1 Problem: new gb1 Symptoms: are resolved gb1 Condition: Stable gb1 Diagnosis - Acute anal fissure gb1 Followup: gb1 - With: Private Physician - When: 2 - 3 days - Reason: Re-evaluation by your physician Discharge Instructions: - Discharge Summary Sheet gb1 - Acute Kidney Injury, Adult gb1 - Anal Fissure, Adult, [id number] gb1 Forms: - Medication Reconciliation Form gb1 - Thank You Letter gb1 - Antibiotic Education gb1 - Prescription Opioid Use gb1 - Patient Portal Instructions gb1 - Leadership Thank You Letter gb1 Signatures: Dispatcher [employer] Refugio Lucas, RN RN as6 Annemarie Alcaraz RN RN jw7 Gisel Chaves MD MD gb1
--- NOTE | 2023-11-06 23:37 | ER ---
Nurse's Notes [facility] Name: Yung Calle Age: 18 yrs Sex: Male : 2005 Arrival Date: 11/06/2023 Time: 20:56 Bed 8 Private MD: Diagnosis: Acute anal fissure Presentation: 11/06 21:16 Chief complaint: Patient states: "I have been having some lower abdominal pain and when as6 I go number 2 there is a lot of bright red blood". Coronavirus screen: At this time, the client does not indicate any symptoms associated with coronavirus-19. Ebola Screen: No symptoms or risks identified at this time. Initial Sepsis Screen: Does the patient meet any 2 criteria? No. Patient's initial sepsis screen is negative. Does the patient have a suspected source of infection? No. Patient's initial sepsis screen is negative. Risk Assessment: Do you want to hurt yourself or someone else? Patient reports no desire to harm self or others. Onset of symptoms was November 06, 2023. 21:16 Method Of Arrival: Ambulatory as6 21:16 Acuity: ENRIQUE 3 as6 Triage Assessment: 21:18 General: Appears in no apparent distress. Behavior is calm, cooperative. Pain: as6 Complains of pain in abdomen. GI: Reports lower abdominal pain, bloody stool. Historical: - Allergies: 21:18 No Known Allergies; as6 - PMHx: 21:18 Asthma; as6 - PSHx: 21:18 None; as6 - Immunization history:: Adult Immunizations up to date. - Social history:: Smoking status: Reported history of juuling and/or vaping. Screenin:20 [facility] ED Fall Risk Assessment (Adult) History of falling in the last 3 months, jw7 including since admission No falls in past 3 months (0 pts) Score/Fall Risk Level 0 - 2 = Low Risk Oriented to surroundings, Maintained a safe environment. Abuse screen: Denies threats or abuse. Denies injuries from another. Nutritional screening: No deficits noted. Tuberculosis screening: No symptoms or risk factors identified. Assessment: 21:20 General: see triage assessment. jw7 22:12 Reassessment: Patient appears in no apparent distress at this time. No changes from jw7 previously documented assessment. Patient and/or family updated on plan of care and expected duration. Pain level reassessed. Patient is alert, oriented x 3, equal unlabored respirations, skin warm/dry/pink. 23:28 Reassessment: Patient appears in no apparent distress at this time. No changes from jw7 previously documented assessment. Patient and/or family updated on plan of care and expected duration. Pain level reassessed. Patient is alert, oriented x 3, equal unlabored respirations, skin warm/dry/pink. Vital Signs: 21:16 BP 129 / 78; Pulse 81; Resp 18 S; Temp 98.4(TE); Pulse Ox 100% on R/A; Weight 122.47 kg as6 (R); Height 6 ft. 4 in. (R); Pain 2/10; 22:30 BP 111 / 69; Pulse 70; Resp 16; Pulse Ox 100% on R/A; jb4 23:28 BP 101 / 62; Pulse 68; Resp 16 S; Pulse Ox 100% on R/A; jw7 21:16 Body Mass Index 32.87 (122.47 kg, 193.04 cm) as6 21:16 Pain Scale: Adult as6 ED Course: 21:11 Patient arrived in ED. gm2 21:12 Gisel Chaves MD is Attending Physician. gb1 21:18 Triage completed. as6 21:18 Arm band placed on. as6 21:20 Patient has correct armband on for positive identification. Bed in low position. Call jw7 light in reach. 21:42 CBC with Diff Sent. bc6 21:42 CMP Sent. bc6 21:42 Lipase Sent. bc6 21:42 Inserted saline lock: 20 gauge in left antecubital area, using aseptic technique. Blood bc6 collected. 22:29 Geo De Jesus, RN is Primary Nurse. jb4 23:29 No provider procedures requiring assistance completed. jw7 23:49 IV discontinued, intact, bleeding controlled, No redness/swelling at site. Pressure jb4 dressing applied. Administered Medications: 22:23 Drug: NS 0.9% IV 1000 ml IV at 1 bolus Per protocol; 1000 mL bolus Route: IV; Rate: 1 jw7 bolus; Site: left antecubital; 22:23 Drug: TORadol - Ketorolac IVP 15 mg IVP once Route: IVP; Site: left antecubital; jw7 22:23 Drug: Ondansetron IVP 4 mg IVP once; over 2 minutes Route: IVP; Site: left antecubital; jw7 Medication: 23:29 VIS not applicable for this client. jw7 Outcome: 23:37 Discharge ordered by . archie 23:49 Discharged to home ambulatory, jbLeopoldo 23:49 Condition: stable 23:49 Discharge instructions given to patient, Instructed on discharge instructions, follow up and referral plans. Demonstrated understanding of instructions, follow-up care, 23:50 Patient left the ED. jb4 Signatures: Geo De Jesus, RN RN jb4 Refugio Maciel, JAKUB RN as6 Annemarie Alcaraz, RN RN jw7 Renuka Garcia Gina, MD MD gb1 Orin Booker 2
[2023-11-07 05:52] VITALS: BP 101/62; TEMP 98.4; O2SAT 100
== END ==
LOC: ER 20:56
DX: K60.0 Acute anal fissure (principal)
CPT/HCPCS: 36415; 80053; 81001; 83690; 85025; 96374; 96375; 99284; J2405; J7030

== ENCOUNTER → 2023-12-23 | Emergency (ER) | payer SELFPAY ==
[~2023-12-23] MED LIST changes: -NA CHLORIDE 0.9% 1,000 ML ONE; -ONDANSETRON 4 MG/2 ML VIAL ONE; +dexAMETHasone 10 MG/ML VIAL ONE
--- OUTSIDE RECORDS SUMMARY | 2023-12-23 07:53 | XMS REPORT | Continuity of Care Document ---
Author Name Unknown Address [address] [facility] [address] [place] [address] [facility] thconnect Address [address] [facility] [address] [place] [address] Care Team Providers Care Manager Clinical Applications Name Role Phone VIKTORIYA JAMESON Primary Care Physician Unav ailable Marie Crowder Attending Clinician [phone] Lab, Ang - Db Attending Clinician Unavailable MARIE OVIEDO Attending Clinician Unavailable Doctor Unassigned, Guide Rock Attending Clinician U navailable Payers Payer Name [...] Date Quantity Comments Source Gender identity [facility] Sexual orientation U [facility] Alcohol intake 2023-05-11 00:00:00 2023-05-11 00:00:00 Current drinker of alcohol (finding) [facility] Tobacco use and exposure 2023-04-11 00:00:00 2023-04-11 00:00:00 Smokeless tobacco non-user [facility] Tobacco Comment 2023-04-11 00:00:00 2023-04-11 00:00:00 Vaping [facility] Alcohol Comment 2023-04-11 00:00:00 2023-04-11 00:00:00 occasional [facility] History of Social function 2023-04-11 00:00:00 2023-04-11 00:00:00 [facility] Sex Assigned At 2005 00:00:00 2005 00:00:00 [facility] Smoking Status Start Date Stop Date Source Tobacco smoking consumption unknown [facility] Never smoked tobacco [facility] Medications Ordered Medication Name Filled Medication Name Start Date Stop Date Current Medication? Ordering Clinician Indication Dosage Frequency Signature (SIG) Comments Components Source ergocalcife rol, vitamin d2, (VITAMIN D2) 1,250 mcg (50,000 unit) capsule 05-11 00:00: 00 Yes [id number] Take 1 capsule by mouth weekly. [facility] bromphenira mine-pseudo ephedrine-D M (BROMFED DM) 2-30-10 mg/5 mL syrup 04-11 00:00: 00 Yes [id number] 5mL Take 5 mL by mouth 4 (four) times daily as needed for Congestion /Allergies . [facility] azelastine 137 mcg (0.1 %) nasal spray 04-11 00:00: 00 Yes [id number] 1{spray } Use 1 [place] in each nostril in the morning and 1 [place] in the evening. Use in each nostril as directed [facility] bromphenira mine-pseudo ephedrine-D M (BROMFED DM) 2-30-10 mg/5 mL syrup 04-11 00:00: 00 Yes [id number] 5mL Take 5 mL by mouth 4 (four) times daily as needed for Congestion /Allergies . [facility] azelastine 137 mcg (0.1 %) nasal spray 04-11 00:00: 00 Yes [id number] 1{spray } Use 1 [place] in each nostril in the morning and 1 [place] in the evening. Use in each nostril as directed [facility] bromphenira mine-pseudo ephedrine-D M (BROMFED DM) 2-30-10 mg/5 mL syrup 0 15 00:00: 00 Yes [id number] 5mL Take 5 mL by mouth 4 (four) times daily as needed for Congestion /Allergies . [facility] azelastine 137 mcg (0.1 %) nasal spray 15 00:00: 00 Yes [id number] 1{spray } Use 1 [place] in each nostril in the morning and 1 [place] in the evening. Use in each nostril as directed [facility] bromphenira mine-pseudo ephedrine-D M (BROMFED DM) 2-30-10 mg/5 mL syrup 0 15 00:00: 00 Yes [id number] 5mL Take 5 mL by mouth 4 (four) times daily as needed for Congestion /Allergies . [facility] azelastine 137 mcg (0.1 %) nasal spray 04-11 00:00: 00 Yes [id number] 1{spray } Use 1 [place] in each nostril in the morning and 1 [place] in the evening. Use in each nostril as directed [facility] bromphenira mine-pseudo ephedrine-D M (BROMFED DM) 2-30-10 mg/5 mL syrup 2022-0 15 00:00: 00 Yes [id number] 5mL Take 5 mL by mouth 4 (four) times daily as needed for Congestion /Allergies . [facility] azelastine 137 mcg (0.1 %) nasal spray 15 00:00: 00 Yes [id number] 1{spray } Use 1 [place] in each nostril in the morning and 1 [place] in the evening. Use in each nostril as directed [facility] bromphenira mine-pseudo ephedrine-D M (BROMFED DM) 2-30-10 mg/5 mL syrup 2022-0 15 00:00: 00 Yes [id number] 5mL Take 5 mL by mouth 4 (four) times daily as needed for Congestion /Allergies . [facility] azelastine 137 mcg (0.1 %) nasal spray 04-11 00:00: 00 Yes [id number] 1{spray } Use 1 [place] in each nostril in the morning and 1 [place] in the evening. Use in each nostril as directed [facility] Vital Signs Vital Name Observation Time Observation Value Comments S [facility] Systolic blood pressure 2023-05-08 12:36:00 132 mm[Hg] [facility] Diastolic blood pressure 2023-05-08 12:36:00 79 mm[Hg] [facility] Heart rate 2023-05-08 12:36:00 72 /min [facility] Body temperature 2023-05-08 12:36:00 36.67 Nereyda [facility] Body height 2023-05-08 12:36:00 179.1 cm [facility] Body weight 2023-05-08 12:36:00 131.906 kg [facility] BMI 2023-05-08 12:36:00 41.14 kg/m2 [facility] Oxygen saturation in Arterial blood by Pulse oximetry 2023-05-08 12:36:00 100 /min [facility] Systolic blood pressure 2023-04-11 18:41:00 106 mm[Hg] [facility] Diastolic blood pressure 2023-04-11 18:41:00 72 mm[Hg] [facility] Heart rate 2023-04-11 18:41:00 96 /min [facility] Body temperature 2023-04-11 18:41:00 36.89 Nereyda [facility] Body height 2023-04-11 18:41:00 189.2 cm [facility] Body weight 2023-04-11 18:41:00 129.593 kg [facility] BMI 2023-04-11 18:41:00 36.19 kg/m2 [facility] Oxygen saturation in Arterial blood by Pulse oximetry 2023-04-11 18:41:00 99 /min [facility] Procedures Procedure Date / Time Performed Performing Clinicia n Source POCT MOLECULAR STREP 2023-04-11 18:51:00 Gely Oviedo [facility] CONSENT/REFUSAL FOR DIAGNOSIS AND TREATMENT 2023-04-11 18:38:26 Doctor Unassigned, Guide Rock [facility] ASSIGNMENT OF BENEFITS 2023-04-11 18:38:14 Docto r Unassigned, Guide Rock [facility] Encounters Start Date/Time End Date/Time Encounter Type Admission Type Attending [facility] Care Department Encounter ID Source 2023-05-11 00:00:00 2023-05-11 00:00:00 Telephone Marie [facility] [id number] [facility] 2023-05-08 08:00:00 2023-05-08 08:15:00 Psychiatric Mental Health Nurse Visit Lab, [place] - Marie Leal [facility] 1..840.114 [id number] [facility] 2023-05-08 07:30:00 2023-05-08 07:55:08 Outpatient R MARIE OVIEDO [facility] [id number] [facility] 2023-05-08 07:30:00 2023-05-08 07:55:08 Office Visit Marie Oviedo [facility] [id number] [facility] 2023-04-11 13:30:00 2023-04-11 14:16:43 Outpatient R MARIE OVIEDO [facility] [id number] [facility] 2023-04-11 13:30:00 2023-04-11 14:16:43 Office Visit Marie Oviedo [facility] [id number] [facility] 2023-04-11 00:00:00 2023-04-11 00:00:00 Orders Only Doctor Unassigned, Guide Rock [facility] [id number] [facility] Results Test Description Test Time Test Comments Results Result Co mments Source [id number] 18:59:28* Test Item Value Reference Range Interpretation Comme nts POCT Molecular Strep (test c ode = 11987-5) Negative Negative Lab Interpretation (test cod e = 89578-9) Normal [facility]
[2023-12-23 08:53] LABS: SARS-CoV-2 Antigen Rapid Res Positive (Negative)
--- NOTE | 2023-12-23 09:22 | ER ---
Nurse's Notes [facility] Name: Yung Calle Age: 18 yrs Sex: Male : 2005 Arrival Date: 12/23/2023 Time: 07:50 Bed 5 Private MD: Diagnosis: COVID-19 Presentation: 12/23 08:21 Chief complaint: Patient states: frontal headache that began Saturday, pt now he had aa5 runny nose and nasal congestion. Coronavirus screen: congestion, runny nose. Ebola Screen: Patient denies travel to an Ebola-affected area in the 21 days before illness onset. Initial Sepsis Screen: Does the patient meet any 2 criteria? HR > 90 bpm. Does the patient have a suspected source of infection? No. Patient's initial sepsis screen is negative. Risk Assessment: Do you want to hurt yourself or someone else? Patient reports no desire to harm self or others. Onset of symptoms was November 2023. 08:21 Acuity: ENRIQUE 4 aa5 08:21 Method Of Arrival: Ambulatory aa5 Historical: - Allergies: 08:22 No Known Allergies; aa5 - PMHx: 08:22 Asthma; aa5 - PSHx: 08:22 None; aa5 - Immunization history:: Adult Immunizations up to date. - Social history:: Smoking status: Reported history of juuling and/or vaping. Screenin:34 [facility] ED Fall Risk Assessment (Adult) Score/Fall Risk Level 0 - 2 = Low Risk. Abuse iw screen: Denies threats or abuse. Denies injuries from another. Nutritional screening: No deficits noted. Tuberculosis screening: No symptoms or risk factors identified. Assessment: 09:00 General: Appears in no apparent distress. General: Reports feeling ill for fatigue for. iw Pain: Complains of pain in head. Neuro: Level of Consciousness is awake, alert, obeys commands, Oriented to person, place, time, situation. Cardiovascular: Patient's skin is warm and dry. Respiratory: Respiratory effort is even, unlabored, Respiratory pattern is regular, symmetrical. GI: Abdomen is non-distended. Derm: Skin is intact, is healthy with good turgor. Musculoskeletal: Range of motion: intact in all extremities. Vital Signs: 08:21 BP 131 / 85; Pulse 99; Resp 18 S; Temp 98.2(O); Pulse Ox 99% on R/A; Weight 127.01 kg aa5 (R); Height 6 ft. 3 in. (R); 09:37 BP 116 / 72; Pulse 89; Resp 16; Temp 98(TE); Pulse Ox 99% on R/A; iw 08:21 Body Mass Index 35.00 (127.01 kg, 190.5 cm) aa5 ED Course: 07:55 Patient arrived in ED. mg5 08:00 Isabell Lincoln PA-C is PHCP. sb4 08:00 Bronson Reyes MD is Attending Physician. sb4 08:21 Arm band placed on. aa5 08:22 Triage completed. aa5 08:44 Isabella El, RN is Primary Nurse. iw 09:34 No provider procedures requiring assistance completed. Patient did not have IV access iw during this emergency room visit. Administered Medications: 09:27 Drug: Ketorolac IM 30 mg IM once Route: IM; Site: left deltoid; iw 09:45 Follow up: Response: No adverse reaction iw 09:27 Drug: Dexamethasone IM 10 mg IM once Route: IM; Site: left deltoid; iw 09:45 Follow up: Response: No adverse reaction iw Outcome: 09:22 Discharge ordered by . sb4 09:59 Patient left the ED. iw Signatures: Isabella El, JAKUB RN iw Therese Hernandez RN RN aaIsabell Moore PA-C PA-C sb4 Leia Quintana mg5
--- NOTE | 2023-12-23 09:22 | EDPHYS ---
Physician Documentation [facility] Name: Yung Calle Age: 18 yrs Sex: Male : 2005 Arrival Date: 12/23/2023 Time: 07:50 Bed 5 Private MD: ED Physician Bronson Reyes HPI: 12/23 08:36 This 18 yrs old Male presents to ER via Ambulatory with complaints of Flu sb4 Symptoms, Headache. 08:36 sinus headache x 1 week, worse with movement. developed cough and congestion yesterday. sb4 has taken several OTC medications without any relief. family members have been sick. Historical: - Allergies: 08:22 No Known Allergies; aa5 - PMHx: 08:22 Asthma; aa5 - PSHx: 08:22 None; aa5 - Immunization history:: Adult Immunizations up to date. - Social history:: Smoking status: Reported history of juuling and/or vaping. ROS: 08:36 Constitutional: Negative for fever, chills, and weight loss, sb4 08:36 ENT: Positive for nasal discharge, sinus congestion, sinus pain, 08:36 Neuro: Positive for headache, 08:36 All other systems are negative, Exam: 08:36 Constitutional: This is a well developed, well nourished patient who is awake, alert, sb4 and in no acute distress. Head/Face: Normocephalic, atraumatic. Eyes: Extra-ocular motions intact. Periorbital areas with no swelling, redness, or edema. ENT: Mucous membranes moist. Cardiovascular: Regular rate and rhythm with a normal S1 and S2. Respiratory: Lungs have equal breath sounds bilaterally, clear to auscultation and percussion. No rales, rhonchi or wheezes noted. No increased work of breathing, no retractions or nasal flaring. Abdomen/GI: Soft, non-tender, no distension. Skin: Warm, dry with normal turgor. Normal color with no rashes, no lesions, and no evidence of cellulitis. MS/ Extremity: Pulses equal, no cyanosis. Neurovascular intact. Full, normal range of motion. Neuro: Awake and alert, GCS 15, oriented to person, place, time, and situation. Motor strength 5/5 in all extremities. Sensory grossly intact. Vital Signs: 08:21 BP 131 / 85; Pulse 99; Resp 18 S; Temp 98.2(O); Pulse Ox 99% on R/A; Weight 127.01 kg aa5 (R); Height 6 ft. 3 in. (R); 09:37 BP 116 / 72; Pulse 89; Resp 16; Temp 98(TE); Pulse Ox 99% on R/A; iw 08:21 Body Mass Index 35.00 (127.01 kg, 190.5 cm) aa5 MDM: 08:00 Patient medically screened. sb4 08:36 Differential diagnosis: viral Infection, bacterial infection, URI. sb4 09:21 Data reviewed: vital signs, nurses notes, lab test result(s), and as a result, I will sb4 discharge patient. Counseling: I had a detailed discussion with the patient and/or guardian regarding the historical points, exam findings, and any diagnostic results supporting the discharge/admit diagnosis, lab results, to return to the emergency department if symptoms worsen or persist or if there are any questions or concerns that arise at home. 12/23 08:29 Order name: SARS RAPID; Complete Time: 08:54 sb4 12/23 08:29 Order name: Flu; Complete Time: 09:24 sb4 Administered Medications: 09:27 Drug: Ketorolac IM 30 mg IM once Route: IM; Site: left deltoid; iw 09:45 Follow up: Response: No adverse reaction iw 09:27 Drug: Dexamethasone IM 10 mg IM once Route: IM; Site: left deltoid; iw 09:45 Follow up: Response: No adverse reaction iw Disposition: 11:40 Co-signature as Attending Physician, Bronson Reyes MD I reviewed the patient's care rt provided by the Advanced Practice Provider and agree with the diagnosis and treatment plan. Disposition Summary: 12/23/23 09:22 Discharge Ordered Notes: Location: Home sb4 Problem: an ongoing problem sb4 Symptoms: are unchanged sb4 Condition: Stable sb4 Diagnosis - COVID-19 sb4 Followup: sb4 - With: Emergency Department - When: As needed - Reason: Trouble breathing, Worsening of condition Discharge Instructions: - Discharge Summary Sheet sb4 - 10 Things You Can Do to Manage Your COVID-19 Symptoms at Home - [facility] (05/12/2021) sb4 Forms: - Work release form sb4 - Thank You Letter sb4 - Patient Portal Instructions sb4 - Leadership Thank You Letter sb4 Signatures: Dispatcher [employer] Isabella Ramírez, RN RN Therese Moore RN RN Isabell Manning PA-C PA-C sb4 Bronson Reyes MD MD rt
[2023-12-23 10:52] VITALS: BP 116/72; TEMP 98; O2SAT 99
== END ==
LOC: ER 07:50
DX: U07.1 COVID-19 (principal)
CPT/HCPCS: 36415; 87804; 87811; 96372; 99284; J1100